=== PATIENT | female | born 1985 | race Asian ===

== ENCOUNTER → 2016-08-31 | Outpatient (CLI) | payer OTHER ==
--- NOTE | 2016-08-31 13:09 | US ---
Bilateral Breast Ultrasound History: Screening breast ultrasound. Comparison: Screening mammography December 17, 2015. Technique: Longitudinal and transverse images were obtained utilizing a 15 MHz transducer. Color Dopp ler evaluation was employed for assessment of vascularity. Findings: Scattered glandular elements are noted bilaterally. No suspicious solid abnormality is see n. A few scattered small simple cysts are seen. Impression: Benign sonographic findings. BI-RADS 2. Recommendation: Continued sonographic follow up can be considered in one year in this patient who is currently and, therefore, not a good candidate for screening , especially considering her ma rkedly dense breast parenchyma. A verbal report was given to the patient. [facility] will send a result letter to the patient.
== END ==
LOC: FIMAGING 12:10
PROVIDERS: ATTEND Internal Medicine Hematology & Oncology
DX: Z12.39 Encounter for other screening for malignant neoplasm of breast (principal)

== ENCOUNTER 2017-03-11 10:00 | Inpatient (IN) | payer OTHER ==
[2017-03-11] MEDS ORDERED: AMMONIA AROMATIC 1 EACH AMP IH ONE (10:05)
[2017-03-11] MEDS ORDERED: LIDOCAINE 1% 300 MG/30 ML SDV ONE (10:05)
[2017-03-11] MEDS ORDERED: OLIVE OIL 118 ML BTL ONE (10:05)
[2017-03-11] MEDS ORDERED: TERBUTALINE SULFATE 1 MG/ML VIAL IV PRN (10:06)
[2017-03-11] MEDS ORDERED: OXYTOCIN 10 UNIT/ML VIAL ONE (10:06)
[2017-03-11] MEDS ORDERED: OXYTOCIN/RINGERS LACTATE 1,000 ML IV PRN (10:06)
[2017-03-11] MEDS ORDERED: EPSOM SALT 454 GM TP PRN (10:06)
[2017-03-11] MEDS ORDERED: TERBUTALINE SULFATE 1 MG/ML VIAL ONE (10:06)
[2017-03-11] MEDS ORDERED: OLIVE OIL 118 ML BTL MISC PRN (10:06)
[2017-03-11] MEDS ORDERED: MISOPROSTOL 200 MCG TAB ONE (10:06)
[2017-03-11] MEDS ORDERED: LR 1,000 ML IV PRN (10:06)
[2017-03-11] MEDS ORDERED: AMPICILLIN SODIUM 2 GM in NS 100 ML IV ONE (10:06)
--- NOTE | 2017-03-11 10:15 | OBPROG ---
OBG Labor Progress Note Assessment/Plan: Assessment:contractions q2-3 pain well managed exam /-1 cephalic + bloody show probable rom at 0830 clear fluid gbs + will start antibiotics Plan:gbs+ antibiotics, expectant management of labor 03/11/17 10:12 Subjective: Coping well through the pain. Contractions q2-3 minutes apart. Feeling positive movement - SVE Dilation (cm): 9 Effacement (%): 90 Station: -1 - Physical Exam General Appearance: WD/WN, alert, no apparent distress Respiratory: chest non-tender, lungs clear, normal breath sounds Cardiac/Chest: regular rate, rhythm Abdomen: normal bowel sounds Extremities: Aki's sign (negative bilaterally) DTR- Lower Extremities: Knee (R): 1+, Knee (L): 1+ (no clonus) Skin: normal color, warm/dry Neuro/Psych: no motor/sensory deficits, alert, normal mood/affect, oriented x 3 ICD10 Worksheet Patient Problems: Problems Problem Status Onset term labor Acute
[2017-03-11 10:28] LABS: % IMMATURE GRANULYOCYTES 1.1 % (0.0-1.1); ABSOLUTE IMMATURE GRANULOCYTES 0.13 10^3/uL (0.00-0.10); ADD DIFF? NO; ADD MORPH? NO; ADD SCAN? NO; ATYPICAL LYMPHOCYTE FLAG 0 (0-99); FRAGMENT RBC FLAG 0 (0-99); HEMATOCRIT 39.3 % (38.0-47.0); HEMOGLOBIN 13.2 g/dL (12.6-16.3); LEFT SHIFT FLG 10 (0-99); LIPEMIA HEMOLYSIS FLAG 80 (0-99); MEAN CELL HEMOGLOBIN 30.1 pg (27.9-34.1); MEAN CELL HEMOGLOBIN CONCENTR. 33.6 g/dL (32.4-36.7); MEAN CELL VOLUME 89.7 fL (81.5-99.8); MEAN PLATELET VOLUME 10.4 fL (8.7-11.7); PLATELET CLUMPS FLAG 0 (0-99); PLATELET COUNT 251 10^3/uL (150-400); RED BLOOD CELL COUNT 4.38 10^6/uL (4.18-5.33); RED CELL DISTRIBUTION WIDTH 12.9 % (11.5-15.2)
--- NOTE | 2017-03-11 11:06 | OBPROG ---
OBG Labor Progress Note Assessment/Plan: Assessment:contractions q2-3 pain well managed exam 10/100/0 cephalic + bloody show probable rom at 0830 clear fluid arom of forebag clear fluid gbs + will start antibiotics 1st dose of antibiotics given Plan:expectant management of labor 03/11/17 10:12 03/11/17 11:04 Objective: 03/11/17 10:10 - Procedures Non-surgical Procedures: Amniotomy (clear fluid forebag ) ICD10 Worksheet Patient Problems: Problems Problem Status Onset term labor Acute
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
[2017-03-11] MEDS ORDERED: METHYLERGONOVINE MAL 0.2 MG/ML INJ ONE (11:40)
[2017-03-11] MEDS ORDERED: SIMETHICONE 80 MG TAB CHEW PO PRN (12:11)
[2017-03-11] MEDS ORDERED: ACETAMINOPHEN 325 MG TAB PO PRN (12:11)
[2017-03-11] MEDS ORDERED: HYDROCORTISONE 0.5% CREAM TP PRN (12:11)
[2017-03-11] MEDS ORDERED: HYDROCODONE/APAP 5/325 TAB PO PRN (12:11)
--- NOTE | 2017-03-11 12:11 | OBDEL ---
Info Type: Vaginal GBS+: Yes Antibiotic Used for + GBS: Ampicillin Number of Antibiotic Doses Given: 1 Indications for Delivery: Spontaneous Labor, SROM Vaginal Delivery - Labor and Delivery Onset of Contractions Date: 03/11/17 Onset of Contractions Time: 04:30 Onset of Contractions Type: Spontaneous Rupture of Membranes Date: 03/11/17 Rupture of Membranes Time: 08:30 Rupture of Membranes Type: Spontaneous (arom forebag 1100 when patient 10cm) Amniotic Fluid Color: Clear Dilation Complete Date: 03/11/17 Dilation Complete Time: 10:30 Non-surgical Procedures: Amniotomy (clear fluid forebag ) Laceration: 2nd Degree Repair: 3-0, Vicryl, Other (Specify) (left labial. vaginal ext. bilateral periurethrals) Vaginal Sponge Count Correct: Yes Vaginal Needle Count Correct: Yes Vaginal Sweep Performed: No EBL: 400 Delivery Events: None Delivery Comment: hands and knees position for delivery - Medications Labor Augmentation/Induction Methods Used: None Operative Report - Delivery L&D Analgesia/Anesthesia Type: Local Data Twin A Delivery Date: 03/11/17 Delivery Time: 11: PAULETTE: 03/21/17 Gestational Age: 38 week(s) and 4 day(s) Sex of Infant: Male Score (1 Min): 8 Score (5 Min): 9 ICD10 Worksheet Patient Problems: Problems Problem Status Onset term labor Acute
[2017-03-11] MEDS ORDERED: METHYLERGONOVINE MAL 0.2 MG/ML INJ IM ONE (12:13)
[2017-03-11] MEDS: IBUPROFEN 600 MG TAB PO PRN ×2 (12:17→18:39)
[2017-03-11] MEDS ORDERED: AMPICILLIN SODIUM 1 GM in NS 100 ML IV SCH (14:06)
[2017-03-12] MEDS: IBUPROFEN 600 MG TAB PO PRN ×3 (00:24→16:35)
[2017-03-12] MEDS: DOCUSATE SODIUM 100 MG CAP PO PRN ×3 (00:24→21:25)
[2017-03-12] MEDS: IRON POLYSAC/IRON HEME 28 MG TAB PO SCH ×2 (09:01→21:25)
--- NOTE | 2017-03-12 10:09 | OBPP ---
Progress Note Assessment/Plan: Assessment:doing well denies difficulties pain well managed vs wnl pain well managed well nipples intact Complaint of soreness to right of umbilicus/ reassured voiding without difficulty ff@u scant rubra lochia Plan:expectant management pp day 1 03/11/17 10:12 03/11/17 11:04 03/12/17 10:06 Objective: 03/12/17 05:00 Patient ABO/Rh O POSITIVE 03/11/17 10:10 Temp Pulse Resp BP Pulse Ox 37.3 C 71 16 112/75 95 03/11/17 20:00 03/11/17 20:00 03/11/17 20:00 03/11/17 20:00 03/11/17 20:00 Physical Exam - Physical Exam General Appearance: WD/WN, alert, no apparent distress Abdomen: other (ff@u) Extremities: Aki's sign (negative bilaterally) DTR- Lower Extremities: Knee (R): 1+, Knee (L): 1+ (no clonus bilaterally) Skin: normal color, warm/dry Neuro/Psych: no motor/sensory deficits, alert, normal mood/affect, oriented x 3
[2017-03-13] MEDS: IBUPROFEN 600 MG TAB PO PRN ×2 (05:14→11:29)
--- NOTE | 2017-03-13 09:16 | OBPP ---
Progress Note Assessment/Plan: Assessment: 1) s/p PPD # 2 - pt is stable 2) Anemia - pt is asymptomatic Plan: Plan for d/c home today Instructions reviewed with pt No Rx given Cont PNV, colace and iron Pelvic rest RTC in 4 and 6 weeks 03/13/17 09:14 Subjective: Pt seen and examined. Doing well with no complaints. Minimal cramping. Moderate lochia. Pt is OOB, carolee regular diet, voiding without difficulty and passing flatus. No BM yet. BF without difficulty. Objective: 03/12/17 05:00 Patient ABO/Rh O POSITIVE 03/11/17 10:10 Temp Pulse Resp BP Pulse Ox 36.4 C 66 16 123/70 H 97 03/12/17 19:30 03/12/17 19:30 03/12/17 19:30 03/12/17 19:30 03/12/17 19:30 Uterine Position/Fundal Height: Umbilicus -2 Uterine Tone: Firm Physical Exam - Physical Exam General Appearance: WD/WN, alert, no apparent distress Respiratory: lungs clear, normal breath sounds Cardiac/Chest: regular rate, rhythm Abdomen: normal bowel sounds, non-tender, soft, flatus (+) Extremities: non-tender, normal inspection Skin: normal color, warm/dry Neuro/Psych: alert, normal mood/affect, oriented x 3
--- NOTE | 2017-03-13 09:19 | OBGCSDC ---
General Delivery Information - General Info : 1 Para: 1 Delivery Physician/CNM: Nella Ocasio Admission Date: 03/11/17 Labs: Patient ABO/Rh O POSITIVE 03/11/17 10:10 Hct 32.5 % (38.0-47.0) L 03/12/17 05:00 Vaginal - Diagnosis Labor: Spontaneous Rupture of Membranes Type: Spontaneous (arom forebag 1100 when patient 10cm) Amniotic Fluid Color: Clear Laceration: 2nd Degree Repair: 3-0, Vicryl, Other (Specify) (left labial. vaginal ext. bilateral periurethrals) Delivery Events: None - Operations/Procedures Non-surgical Procedures: Amniotomy (clear fluid forebag ) L&D Analgesia/Anesthesia Type: Local - Hospital Course Antepartum: Marginal cord insertion with f/u growth-all normal. GBS +_ Intrapartum: Active labor. SROM-clear fluid and then AROM of forebag. Uncomplicated with 2nd degree lac repair. : Uncomplicated. Mod lochia. Mild cramping. BF without difficulty. - Delivery Non-surgical Procedures: Amniotomy (clear fluid forebag ) L&D Analgesia/Anesthesia Type: Local [place] Data Twin A Delivery Date: 03/11/17 Delivery Time: 11:28 PAULETTE: 03/21/17 Gestational Age: 38 week(s) and 6 day(s) Sex of Infant: Male [place] Weight (gm): 3268 kg Score (1 Min): 8 Score (5 Min): 9 Discharge Information - Discharge Information Discharge Medications: Iron, Ibuprofen, Vitamins Condition: Good Instruction/Follow Up: Four Weeks, Six Weeks Discharge Physician/CNM: Susanna Denis
[2017-03-13 09:23] VITALS: BP 105/64; PULSE 81; RESP 17; TEMP 97.8; O2SAT 95
[2017-03-13] MEDS: DOCUSATE SODIUM 100 MG CAP PO PRN (11:30)
[2017-03-13] MEDS: IRON POLYSAC/IRON HEME 28 MG TAB PO SCH (11:30)
== END 2017-03-13 12:00 | disposition home or self-care (01) | DRG 775 ==
LOC: FLD 10:00 → FOB 16:05
PROVIDERS: ADMIT Advanced Practice Midwife; ATTEND Obstetrics & Gynecology
PROC: 10E0XZZ Delivery of Products of Conception, External Approach (ICD-10-PCS; principal; 2017-03-11)
PROC: 10907ZC Drainage of Amniotic Fluid, Therapeutic from Products of Conception, Via Natural or Artificial Opening (ICD-10-PCS; principal; 2017-03-11)
PROC: 0KQM0ZZ Repair Perineum Muscle, Open Approach (ICD-10-PCS; principal; 2017-03-11)
DX: O70.1 Second degree perineal laceration during delivery (principal); O90.81 Anemia of the puerperium; O99.820 Streptococcus B carrier state complicating pregnancy; Z3A.38 38 weeks gestation of pregnancy; Z37.0 Single live birth
CPT/HCPCS: J0290; J2210; J2590; J3105